=== PATIENT | male | born 1965 | race Caucasian/White ===

== ENCOUNTER 2021-03-09 22:28 | Emergency (ER) | payer SELFPAY ==
[~2021-03-09] VITALS: Ht 167.6 cm; Wt 81.6 kg
[2021-03-09 22:30] VITALS: BP 160/101
[2021-03-09] MEDS ORDERED: LIDOCAINE/EPI 1% 1:100000 20 ML VIAL INJ ONE (22:40)
[2021-03-09] MEDS ORDERED: BACITRACIN OINT 500 UNITS/GM PKT TP ONE (23:27)
[2021-03-09] MEDS ORDERED: IBUP-2213 PO (23:28)
[2021-03-09] MEDS ORDERED: IBUPROFEN 600 MG TAB PO ONE (23:30)
[2021-03-09] MEDS ORDERED: IBUPROFEN 600 MG TAB ONE (23:35)
[2021-03-09 23:40] VITALS: BP 160/101
== END 2021-03-09 23:31 | disposition home or self-care (01) ==
LOC: MED 22:28
DX: S02.2XXA Fracture of nasal bones, initial encounter for closed fracture (principal); S01.111A Laceration without foreign body of right eyelid and periocular area, initial encounter; Y04.8XXA Assault by other bodily force, initial encounter; Y93.89 Activity, other specified; Y92.89 Other specified places as the place of occurrence of the external cause; Y99.8 Other external cause status
CPT/HCPCS: 12001; 70450; 99284; J2001